=== PATIENT | female | born 1960 | race Caucasian/White ===

== ENCOUNTER 2017-03-06 09:29 | Day surgery (SDC) | payer BC ==
[2017-03-06] MEDS ORDERED: PROPOFOL 500 MG/50 ML EMU IV ONE (10:39)
[2017-03-06 11:48] VITALS: TEMP 98.2
[2017-03-06 12:29] VITALS: RESP 20
[2017-03-06 12:35] VITALS: BP 118/81; PULSE 76; O2SAT 96
== END 2017-03-06 12:45 | disposition home or self-care (01) ==
LOC: SURG 09:29
PROVIDERS: ATTEND Surgery
DX: R19.5 Other fecal abnormalities (principal); D12.2 Benign neoplasm of ascending colon; D12.5 Benign neoplasm of sigmoid colon; D12.3 Benign neoplasm of transverse colon; K63.5 Polyp of colon; K57.30 Diverticulosis of large intestine without perforation or abscess without bleeding
CPT/HCPCS: 45385; 99001; J2704